=== PATIENT | male | born 1940 | race American Indian/Alaskan Native ===

== ENCOUNTER 2016-08-24 20:42 | Emergency (ER) | payer MEDICARE ==
--- NOTE | 2016-08-24 21:12 | Emergency Department Report ---
ED Male HPI - General Chief complaint: Urogenital-Male Stated complaint: BLOOD IN URINE Time Seen by Provider: 08/24/16 21:11 Source: patient, family, RN notes reviewed Mode of arrival: Wheelchair Limitations: No Limitations - History of Present Illness Initial comments: This is a 76-year-old male. He is previously unknown to me. Reports a history of kidney stones and prostate cancer. Patient reports having an outpatient left-sided lithotripsy performed yesterday. This was performed at [facility]. The patient presents to the ER with bloody discharge from the urethral meatus, and urinary retention. He denies headache, neck pain, chest pain, shortness of breath, testicular pain. The patient appeared to be quite uncomfortable, therefore a 16 [place] Caban catheter was placed by myself using typical sterile technique with one attempt, with immediate relief obstruction, and the discharge of bloody urine. Patient denies fevers, chills, and reports symptoms have since resolved. MD Complaint: other (urinary retention) -: Gradual Consistency: constant Improves with: other (symptoms improved with placement of Caban catheter) Worsens with: none denies other symptoms, blood in urine - Related Data Allergies Allergy/AdvReac Type Severity Reaction Status Date / Time Penicillins Allergy Unknown Verified 08/24/16 20:59 ED Review of Systems ROS: Stated complaint: BLOOD IN URINE Other details as noted in HPI Constitutional: denies: fever Eyes: denies: vision change ENT: denies: epistaxis Respiratory: denies: cough Cardiovascular: denies: chest pain Gastrointestinal: abdominal pain Genitourinary: hematuria. denies: urgency, dysuria, frequency, testicular pain Musculoskeletal: denies: back pain Skin: denies: lesions Neurological: denies: weakness Psychiatric: anxiety ED Past Medical Hx - Past Medical History Previous Medical History?: Yes Hx Renal Disease: Yes Hx of Cancer: Yes (PROSTATE 03/2016) Hx Kidney Stones: Yes Hx COPD: Yes - Surgical History Past Surgical History?: Yes Additional Surgical History: HERNIA - Social History Smoking Status: Never Smoker Substance Use Type: None ED Physical Exam - General Limitations: No Limitations General appearance: alert, in no apparent distress - Head Head exam: Present: atraumatic, normocephalic - Eye Eye exam: Present: normal appearance, EOMI. Absent: nystagmus - ENT ENT exam: Present: normal exam, normal orophraynx, mucous membranes moist, normal external ear exam - Neck Neck exam: Present: normal inspection, full ROM. Absent: tenderness, meningismus - Respiratory Respiratory exam: Present: normal lung sounds bilaterally. Absent: respiratory distress, wheezes, rales, rhonchi, stridor, chest wall tenderness, accessory muscle use, decreased breath sounds, prolonged expiratory - Cardiovascular Cardiovascular Exam: Present: regular rate, normal rhythm, normal heart sounds. Absent: bradycardia, tachycardia, irregular rhythm, systolic murmur, diastolic murmur, rubs, gallop - GI/Abdominal GI/Abdominal exam: Present: soft, normal bowel sounds. Absent: distended, tenderness, guarding, rebound, rigid, pulsatile mass - Rectal Rectal exam: Present: deferred - exam: Present: normal inspection, other (there is normal cremasteric reflex bilaterally. There is no testicular tenderness. The patient is uncircumcised. Foreskin retracts easily.). Absent: testicular tenderness External exam: Present: normal external exam - Extremities Exam Extremities exam: Present: normal inspection, full ROM, normal capillary refill. Absent: tenderness, pedal edema, joint swelling, calf tenderness - Back Exam Back exam: Present: normal inspection, full ROM. Absent: tenderness, CVA tenderness (R), CVA tenderness (L), muscle spasm, paraspinal tenderness, vertebral tenderness - Neurological Exam Neurological exam: Present: alert, oriented X3, normal gait, other (Extraocular movements intact. Tongue midline. No facial droop. Facial sensation intact to light touch in the V1, V2, V3 distribution bilaterally. 5 and 5 strength in 4 extremities.. Sensation is intact to light touch in 4 extremities.). Absent : motor sensory deficit - Psychiatric Psychiatric exam: Present: normal affect, normal mood, anxious - Skin Skin exam: Present: warm, dry, intact, normal color. Absent: rash ED Course Vital Signs 08/24/16 08/24/16 08/24/16 20:59 21:25 23:24 Temperature 98.2 F 97.5 F L Pulse Rate 96 H 64 Respiratory 22 18 16 Rate Blood Pressure 158/82 Blood Pressure 145/78 [Left] O2 Sat by Pulse 100 97 99 Oximetry 08/25/16 08/25/16 00:34 03:29 Temperature Pulse Rate 116 H 110 H Respiratory 20 14 Rate Blood Pressure Blood Pressure 133/86 106/61 [Left] O2 Sat by Pulse 98 98 Oximetry - Reevaluation(s) Reevaluation #1: 08/24/16 21:28 differential diagnosis: Ureteral injury, obstructive uropathy, hematuria, urinary tract infection Assessment and plan: 76-year-old male who status post outpatient kidney stone removal yesterday, thinks it is lithotripsy. We are attempting to obtain patient's old medical records. We will obtain CT scan with IV contrast to exclude ureteral injury Reevaluation #2: 08/24/16 22:24 medical records are reviewed. Patient was seen yesterday for extracorporeal shock wave lithotripsy. The patient had a CT scan performed on August 03, which demonstrated a 3 mm parenchymal calcification at the lower pole in the right kidney. An irregular 5 mm calcification was noted in the lower pole of the left kidney. The patient had a left-sided extrapleural shockwave lithotripsy performed yesterday, by his urologist, Dr. Jamar So Given that the medical records indicate the patient did not receive any instrumentation, at this point in time, I think ureteral injury is unlikely, and I will cancel the CT scan. The patient's bladder was reirrigated with sterile saline, and is now re obstructed, we are going to start continuous bladder irrigation. 08/24/16 22:33 Reevaluation #3: 08/25/16 00:28 patient has received a few liters of irrigation through the continuous bladder irrigation. The patient is now obstructed again. We have attempted to decompress the bladder multiple times, it is not successful. The [facility] transfer line was contacted, and the patient's urologist has been paged through his listed number. I am waiting for them to call back. Reevaluation #4: 08/25/16 00:41 case d/w Dr Pedro Bolden, he recommends up sizing to 24 uzbek caban and aggressive irrigation with a 60 cc syringe. he indicates that patient can be transferred if we are unsuccessful in relieving obstruction He indicates that if patient is successful in being treated, the patient can follow up with him as soon as possible by calling as an outpatient for an appointment. 08/25/16 04:45 Patient has received copious irrigation through continuous bladder irrigation. His obstruction has been relieved, and his urine is now becoming more clear/ translucent. The patient feels suitable to follow up with his outpatient urologist. He will be discharged at this time. He will be continued on a leg bag. Return precautions are reviewed. 0 ED Medical Decision Making - Lab Data Result diagrams: 08/24/16 22:30 08/24/16 22:30 Vital Signs 08/24/16 08/24/16 20:59 21:25 Temperature 98.2 F 97.5 F L Pulse Rate 96 H 64 Respiratory 22 18 Rate Blood Pressure 158/82 Blood Pressure 145/78 [Left] O2 Sat by Pulse 100 97 Oximetry Critical care attestation.: If time is entered above; I have spent that time in minutes in the direct care of this critically ill patient, excluding procedure time. ED Disposition Clinical Impression: Hematuria, Urinary obstruction Disposition: DISCHARGED TO HOME OR SELFCARE Is pt being admited?: No Does the pt Need Aspirin: No Condition: Stable Instructions: Urinary Retention in Men (ED) Additional Instructions: Continue current outpatient medications. Follow up with your urology specialist within the next 3-5 days. [facility] [address] [place] [address] Cultures were sent today, results will be available in the next 3-5 days. Return to the ER right away with new pain, worsened pain, migration of pain, inability to urinate, fevers, chills, chest pain, shortness of breath, confusion. Referrals: PRIMARY MD QIANA [Primary Care Provider] - 3-5 Days MARIAM DALE MD [Staff Physician] - 3-5 Days [facility] [Provider Group] - 3-5 Days
[2016-08-24] MEDS ORDERED: NACL 0.9% 500 ML IR ONE (21:58)
[2016-08-24] MEDS ORDERED: TYLENOL #3 PO ONE (21:58)
[2016-08-24] MEDS ORDERED: NACL 0.9% IR ONE ×3 (22:07→23:00)
[2016-08-24 22:43] LABS: Bilirubin,Urine NEG (Negative); Blood,Urine LG (Negative); Ketones,Urine TR mg/dL (Negative); Leukocyte Esterase,Urine NEG (Negative); Nitrite,Urine NEG (Negative); Urobilinogen,Urine < 2.0 mg/dL (<2.0)
[2016-08-24 22:47] LABS: Protein,Urine >500 mg/dL (Negative); RBC,Urine > 182.0 /HPF (0.0-6.0)
[2016-08-24 22:51] LABS: Hematocrit 33.6 % (35.5-45.6); Hemoglobin 10.9 gm/dl (11.8-15.2); Mean Corpuscular HGB Conc 32 % (32-34); Mean Corpuscular Hemoglobin 28 pg (28-32); Mean Corpuscular Volume 86 fl (84-94); Platelet Count 188 K/mm3 (140-440); Red Blood Count 3.93 M/mm3 (3.65-5.03); Red Cell Distribution Width 16.6 % (13.2-15.2); White Blood Count 11.5 K/mm3 (4.5-11.0)
[2016-08-24 23:00] LABS: Anion Gap 18 mmol/L; Blood Urea Nitrogen 18 mg/dL (9-20); Calcium 9.3 mg/dL (8.4-10.2); Carbon Dioxide 27 mmol/L (22-30); Chloride 96.6 mmol/L (98-107); Glucose 132 mg/dL (75-100); Potassium 4.7 mmol/L (3.6-5.0); Sodium 137 mmol/L (137-145)
[2016-08-25] MEDS ORDERED: DILAUDID IV ONE (00:27)
--- NOTE | 2016-08-25 02:51 | Admit Criteria Form ---
Admission Criteria Documentation: UROLOGIC DISEASE G Clinical Indications for Admission to Inpatient Care (Place ' X' for any and all applicable criteria): Hospital admission is needed for appropriate care of the patient because of 1 or more of the following: [ ]I. New-onset Reduced urine output, or hydronephrosis remaining after emergency or observation level care (as appropriate ) [ ]II. Renal disease needing inpatient care indicated by 1 or more of the following(2)(3)(4): [ ]a) Acute renal failure [ ]b) Significant uremic complications [ ]c) Acute kidney injury (that does not qualify as Acute renal failure ) requiring inpatient care indicated by ALL of the following(5)(6)(7)(8) (9): [ ]i) Worsening clinical status (eg, rising creatinine) despite outpatient and observation care treatment (eg, hydration) [ ]ii) Acute kidney injury indicated by 1 or more of the following: [ ]1) 2-fold or more rise in serum creatinine from baseline [ ]2) Reduction of more than 50% in estimated glomerular filtration rate from baseline [ ]3) Urine output less than 0.5 mL/kg/hr for 12 hours despite adequate volume status [ ]d) Systemic cause (eg, Goodpasture syndrome ) needing inpatient care [ ]e) Rapidly progressive renal disease needing inpatient care (eg, plasmapheresis, immunosuppression ) Anasarca needing inpatient care [ ]f) Hemoptysis [ ]g) Hemolysis, thrombosis, or infraction [ ]h) Anasarca needing inpatient care [ ]III. New-onset or uncontrolled nephrogenic diabetes insipidus [ ]IV. Urologic infection requiring inpatient care as indicated by 1 or more of the following(10)(11)(12): [ ]a) Hemodynamic instability [ ]b) Dehydration that is severe or persistent [ ]c) Failure of outpatient treatment [ ]d) Ela's gangrene [ ]e) Urinary obstruction [ ]f) Immunocompromised state (eg, chronic steroid use ) [ ]g) Known renal or urologic abnormalities(eg, indwelling catheter, structural abnormalities ) [ ]h) Recent urologic manipulation or procedure Urinary obstruction [ ]i) Abscess requiring drainage Immunocompromised state [ ]V. Acute urinary retention requiring inpatient management as indicated by ANY ONE of the following(1)(13): [ ]a) Retention cannot be alleviated via emergency or observation level care (eg, urinary catheter placement) [ ]b) Hemodynamic instability [ ]c) Acute neurologic etiology (eg, cauda equina) [ ]d) Dehydration or other complications not manageable with emergency or observation level care [ ]e) Acute kidney injury (that does not qualify as Acute renal failure ) requiring inpatient care indicated by ALL of the following(5)(6)(7)(8) (9): [ ]i) Acute kidney injury indicated by ANY ONE of the following: [ ]1) 2-fold or more rise in serum creatinine from baseline [ ]2) Reduction of more than 50% in estimated glomerular filtration rate from baseline [ ]ii) Worsening clinical status (eg, rising creatinine) despite outpatient and observation care treatment (eg, hydration) [X ]. Gross hematuria requiring inpatient management as indicated by ANY ONE of the following(1)(2): [ X]a) Evidence of renal obstruction [ ]b) Reduced urine output [ ]c) Clot retention after urinary catheterization and irrigation [ ]d) Severe Anemia [ ]e) Systemic cause needing inpatient treatment (eg, Goodpasture syndrome) [ ]VII. Priapism not responsive to emergency or observation care treatment [ ]VII. Scrotal, testicular, or epididymal disorder requiring inpatient care indicated by 1 or more of the following(1)(14)(15)(16): [ ]a) Scrotal edema or infection not manageable with emergency or observation level care [ ]b) Orchitis not manageable with emergency or observation level care [ ]c) Epididymitis not manageable with emergency or observation level of care [ ]d) Other scrotal, testicular, or epididymal disorder (eg, infection, inflammation) not manageable with emergency or observation level care [ ]IX. Complications of transplanted kidney indicated by 1 or more of the following [ ]a) Acute graft rejection requiring inpatient management (eg, intravenous immunosuppression) [ ]b) Acute kidney injury indicated by ALL of the following i) Acute kidney injury indicated by 1 or more of the following 1) 2-fold or more rise in serum creatinine from baseline 2) Reduction of more than 50% in estimated glomerular filtration rate from baseline 3) Urine output less than 0.5 mL/kg/hr for 12 hours despite adequate volume status ii) Kidney injury too severe or not responsive to outpatient and observation care treatment (eg, hydration) [ ]c) Infection requiring inpatient management (eg, Hemodynamic instability, need for intravenous antimicrobial treatment) [ ]d) Other complication of transplanted kidney requiring patient management (eg, severe diarrhea leading to malabsorption) [ ]X. Trauma to renal, genital, or urologic system requiring inpatient medical care [ ]XI. Urologic Disease condition, symptom, or finding for which emergency and observation care have failed or are not considered appropriate. The original [employer] content created by [employer] has been revised. The portions of the content which have been revised are identified through the use of italic text or in bold, and [facility] has neither reviewed nor approved the modified material. All other unmodified content is copyright [employer] [facility] [employer]. Please see references footnoted in the original [employer] [facility] edition 2016 Admission Criteria Met: Yes
[2016-08-25] MEDS ORDERED: ALUM IR ONE (03:16)
[2016-08-25] MEDS ORDERED: NS IRRIGATION IR ONE (03:16)
[2016-08-25] MEDS ORDERED: NACL 0.9% 1000 ML 1,000 ML ONE (03:38)
[2016-08-25] MEDS ORDERED: NACL 0.9% 1000 ML 1,000 ML IV ONE ×2 (04:00→05:37)
[2016-08-25] MEDS ORDERED: NACL 0.9% IR SCH (04:00)
[2016-08-25 05:19] VITALS: BP 116/84
== END 2016-08-25 05:25 | disposition home or self-care (01) ==
LOC: ED 20:42
DX: N13.9 Obstructive and reflux uropathy, unspecified (principal); R31.9 Hematuria, unspecified; J44.9 Chronic obstructive pulmonary disease, unspecified; C61 Malignant neoplasm of prostate
CPT/HCPCS: 36415; 51700; 80048; 81001; 85027; 87086; 96361; 96374; 99284; A4217; J1170; J7030